=== PATIENT | female | born 1945 ===

== ENCOUNTER 2017-05-03 08:56 | Day surgery (SDC) | payer OTHER ==
[~2017-05-03 08:56] MED LIST: Acetaminophen TAB* 325 MG PO PRN; Buffered Lidocaine 0.9% SYRIN* 5 ML/SYR SYRINGE INTRADERM ONE
[2017-05-03] MEDS ORDERED: Midazolam* 1 MG/ML 2 ML VIAL (2 MG) ONE (10:09)
[2017-05-03 10:57] VITALS: BP 127/73
--- NOTE | 2017-05-03 12:05 | OP ---
DATE OF OPERATION/DATE OF DICTATION: 05/03/2017. DATE OF : 1945. SURGEON: Dr. Dinh Mcdermott. JEWEL GRINDER: None. ANESTHESIA: Topical with intravenous sedation. PRE-OP DIAGNOSIS: Cataract, left eye. POST-OP DIAGNOSIS: Cataract, left eye. OPERATIVE PROCEDURE: Phacoemulsification and cataract extraction with posterior chamber intraocular lens implant, left eye. COMPLICATIONS: None. BLOOD LOSS: None. OPERATIVE FINDINGS: The patient was brought to the operating room and received a small amount of int ravenous sedation. A drop of Tetracaine was placed in her left eye. She was prepped and draped in t he usual sterile fashion for ophthalmic surgery and attention was directed to the left eye where a sp eculum was placed. A paracentesis was created at the 5 o'clock position and 0.1 cc of 1 percent pres ervative-free Lidocaine was injected into the anterior chamber followed by DisCoVisc. The eye was di gitally stabilized while a 2.75 mm keratome was used to create a triplanar clear corneal incision at the 3 o'clock position. A continuous curvilinear capsulorrhexis was created with a cystotome and Utr ezequiel forceps. BSS on a cannula was used to hydrodissect the lens from the capsule. Phacoemulsificati on was performed in a jiyevs-kso-[id number] technique to create four fragments which were removed. Resi dual cortical material was removed with irrigation and aspiration. DisCoVisc was used to inflate the capsular bag and an AUOOTO 24.5 diopter lens was folded and inserted into the capsular bag. DisCoVis c was removed using irrigation and aspiration. BSS on a cannula was used to hydrate the corneal stro ma and seal the wound. At the end of the case the pupil was round and the lens was centered. The eye was of normal pressure and the wound was water tight. The speculum was removed and topical Maxitrol ointment was placed on the surface of the eye. The eye was closed, patched and shielded and the pat ient was sent to the recovery room in stable condition with post operative instructions and follow-up appointment given. [id number] #: [id number]
[2017-05-03] MEDS ORDERED: Tropicamide 1% OPTH.SOL* BTL ONE (15:02)
[2017-05-03] MEDS ORDERED: Cyclopentolate 1% OPTH.SOL* 2 ML BTL ONE (15:02)
[2017-05-03] MEDS ORDERED: Phenylephrine 2.5% OPTH.SOL* 2 ML BTL ONE (15:02)
[2017-05-03] MEDS ORDERED: Buffered Lidocaine 0.9% SYRIN* 5 ML/SYR SYRINGE ONE (15:02)
[2017-05-03] MEDS ORDERED: Tetracaine 0.5% OPTH.SOL 4 ML* 1 DROP BTL ONE (15:02)
[2017-05-03] MEDS ORDERED: Neomycin/Polymy/Dex OPHTH.OIN* 3.5 GM ONE (15:02)
[2017-05-03] MEDS ORDERED: Lidocaine 1% MPF* 2 ML VIAL ONE (15:02)
[2017-05-03] MEDS ORDERED: Ketorolac 0.5% OPHTH (NF) 0.5 % 5 ML BTL ONE (15:02)
== END 2017-05-03 10:49 | disposition home or self-care (01) ==
LOC: OREAST 08:56
PROVIDERS: ATTEND Ophthalmology
DX: H25.12 Age-related nuclear cataract, left eye (principal); H35.30 Unspecified macular degeneration; M19.90 Unspecified osteoarthritis, unspecified site; K21.9 Gastro-esophageal reflux disease without esophagitis
CPT/HCPCS: A9270-GY; J2250; V2632

== ENCOUNTER 2017-05-10 11:02 | Day surgery (SDC) | payer OTHER ==
[2017-05-10] MEDS ORDERED: fentaNYL* 50 MCG/ML 2 ML VIAL (100 MCG VIAL) ONE (11:55)
[2017-05-10] MEDS ORDERED: Midazolam* 1 MG/ML 5 ML VIAL (5 MG) ONE (11:55)
[2017-05-10 14:46] VITALS: BP 120/68
--- NOTE | 2017-05-10 16:46 | OP ---
DATE OF OPERATION/DATE OF DICTATION: 05/10/2017 - [facility] DATE OF : 1945. SURGEON: Dr. Dinh Mcdermott. PHYSICAL EDUCATION TEACHER: None. ANESTHESIOLOGIST: Jan Loera MD ANESTHESIA: Topical with intravenous sedation. PRE-OP DIAGNOSIS: Cataract, right eye. POST-OP DIAGNOSIS: Cataract, right eye. OPERATIVE PROCEDURE: Phacoemulsification and cataract extraction with posterior chamber intraocular lens implant, right eye. COMPLICATIONS: None. BLOOD LOSS: None. DESCRIPTION OF PROCEDURE: The patient was brought to the operating room and received a small amount of intra-venous sedation. A drop of Tetracaine was placed in her right eye. She was prepped and draped in the usual sterile fashion for ophthalmic surgery and attention was directed to the right eye where a speculum was placed. A paracentesis was created at the 11 o'clock position and 0.1 cc of 1 percent preservative-free Lidocaine was injected into the anterior chamber followed by DisCoVisc. The eye was digitally stabilized while a 2.75 mm keratome was used to create a triplanar clear corneal incision at the 9 o'clock position. A continuous curvilinear capsulorrhexis was created with a cystotome and Utrata forceps. BSS on a cannula was used to hydrodissect the lens from the capsule. Phacoemulsification was performed in a divide-and- conquer technique to create four fragments which were removed. Residual cortical material was removed with irrigation and aspiration. DisCoVisc was used to inflate the capsular bag and an AUOOTO 24.5 diopter lens was folded and inserted into the capsular bag. DisCoVisc was removed using irrigation and aspiration. BSS on a cannula was used to hydrate the corneal stroma and seal the wound. At the end of the case the pupil was round and the lens was centered. The eye was of normal pressure and the wound was water tight. The speculum was removed and topical Maxitrol ointment was placed on the surface of the eye. The eye was closed, patched and shielded and the patient was sent to the recovery room in stable condition with post operative instructions and follow-up appointment given. [id number]/[facility] #: [id number] [facility]
== END 2017-05-10 14:40 | disposition home or self-care (01) ==
LOC: OREAST 11:02
PROVIDERS: ATTEND Ophthalmology
DX: H25.011 Cortical age-related cataract, right eye (principal); K21.9 Gastro-esophageal reflux disease without esophagitis; Z88.6 Allergy status to analgesic agent; R00.1 Bradycardia, unspecified
CPT/HCPCS: J2250; J3010